=== PATIENT | female | born 1950 | race Two or more races ===

== ENCOUNTER → 2025-03-03 | Emergency (ER) | payer OTHER ==
[~2025-03-03] VITALS: Ht 167.6 cm; Wt 71.2 kg
[~2025-03-03] MED LIST: KETOROLAC TROMETHAMINE 60 MG VIAL IM ONE; TRAMADOL HCL 50 MG TABLET PO ONE
== END | disposition home or self-care (01) ==
LOC: ER 18:22
DX: S69.81XA Other specified injuries of right wrist, hand and finger(s), initial encounter (principal); W19.XXXA Unspecified fall, initial encounter; Y93.89 Activity, other specified; Y92.89 Other specified places as the place of occurrence of the external cause; Y99.8 Other external cause status; Z91.041 Radiographic dye allergy status
CPT/HCPCS: 73110; 73130; 96372; 99283; J1885